=== PATIENT | male | born 1955 | race Asian ===

== ENCOUNTER 2021-05-05 21:24 | Emergency (ER) | payer OTHER ==
[~2021-05-05] VITALS: Ht 177.8 cm; Wt 101.2 kg
[2021-05-05 21:24] VITALS: BP 136/97; TEMP 99
[2021-05-05 21:46] LABS: PLATELET COUNT 123 K/uL (142-355)
[2021-05-05 21:59] LABS: POTASSIUM 5.1 mmol/L (3.6-5.2)
[2021-05-06] MEDS ORDERED: CYAN10009 SC (00:22)
[2021-05-06] MEDS ORDERED: ZITHROMAX PO (00:25)
[2021-05-06] MEDS ORDERED: LEVE500T5 PO (00:26)
[2021-05-06] MEDS ORDERED: AMLODIPINE BESYLATE PO (00:27)
[2021-05-06] MEDS ORDERED: COZAAR100 MG PO (00:30)
[2021-05-06] MEDS ORDERED: PREZCOBIX 800-11 TAB PO (00:31)
[2021-05-06] MEDS ORDERED: TRUVADA PO (00:33)
== END 2021-05-05 22:44 | disposition other institution (70) ==
LOC: ED 21:24
PROVIDERS: Family Medicine
DX: F03.91 Unspecified dementia, unspecified severity, with behavioral disturbance (principal); Z11.52 Encounter for screening for COVID-19; Z04.6 Encounter for general psychiatric examination, requested by authority
CPT/HCPCS: 36415; 80053; 81000; 85027; 87635; 93005; 99283; U0003